=== PATIENT | female | born 1995 | race American Indian/Alaskan Native ===

== ENCOUNTER 2016-09-16 00:18 | Emergency (ER) | payer OTHER ==
[2016-09-16] MEDS ORDERED: NORCO 7.5/325 PO ONE (00:35)
[2016-09-16] MEDS ORDERED: MOTRIN PO ONE (00:35)
[2016-09-16 00:42] VITALS: BP 120/78
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
--- NOTE | 2016-09-16 09:09 | XRay Report ---
Left knee 3 views: History: Left knee pain. Findings: No bony or articular abnormality. No fracture dislocation or soft tissue calcification. Impression: Essentially negative left knee.
== END 2016-09-16 01:57 | disposition home or self-care (01) ==
LOC: ED 00:18
DX: M25.562 Pain in left knee (principal); F17.200 Nicotine dependence, unspecified, uncomplicated; V49.59XA Passenger injured in collision with other motor vehicles in traffic accident, initial encounter; X58.XXXA Exposure to other specified factors, initial encounter; Y93.9 Activity, unspecified; Y92.9 Unspecified place or not applicable; Y99.9 Unspecified external cause status
CPT/HCPCS: 99283